=== PATIENT | male | born 1950 | race Caucasian/White ===

== ENCOUNTER 2025-02-15 15:33 | Outpatient (CLI) | payer OTHER, MEDICARE, SELFPAY ==
--- NOTE | ~2025-02-15 | XR_ITS ---
Clinical Indication: Shortness of breath PA and lateral views of the chest: Comparison: None Findings: The lungs are clear, without evidence of focal consolidation or pleural effusion. Cardiome diastinal silhouette is within normal limits. Bones and soft tissues are unremarkable. Impression: Normal chest. Reviewed, dictated and finalized at [facility]. Impression: Normal chest.
--- OUTSIDE RECORDS SUMMARY | 2025-02-15 16:26 | XMS_ITS | Referral Summary ---
Author Organization [facility] Address [address] [place] [address] Care Team Providers Care Supervisor Mending Name Role Phone Carlos Salazar MD Unavailable Jared Corea MD Primary Care Provider Encounters Date Type Department Care Team Description 02/09/2025 8:40 AM CDT Office Visit [facility] ENT [address] [facility] [address] [place] [address] Teena Etienne PA Malignant neoplasm of glottis (HCC) (Primary Dx) from Last 3 Months Allergies No known active allergies Medications levothyroxine (SYNTHROID, LEVOTHROID) 88 mcg tablet 04/07/20 18 Active omeprazole (PriLOSEC) 40 mg capsule Take 1 capsule (40 mg total) by mouth daily 30 capsule 11 02/12/20 22 Active atorvastatin (LIPITOR) 10 mg tablet Take 1 tablet (10 mg total) by mouth daily 11/29/19 23 Active lisinopriL (PRINIVIL,ZESTRIL) 10 mg tablet Take 1 tablet (10 mg total) by mouth daily 12/15/19 23 Active lisinopril-hydroCH LOROthiazide (ZESTORETIC) 20-12.5 mg per tablet Take 1 tablet by mouth daily 12/17/19 24 Active Paxlovid tablets,dose pack tablets in a dose pack PLEASE SEE ATTACHED FOR DETAILED DIRECTIONS 11/07/19 24 Active fluticasone propionate (FLONASE) 50 mcg/actuation nasal spray Administer 2 sprays into each nostril daily 01/31/20 25 Active ondansetron ODT (ZOFRAN-ODT) [address] 1 TABLET 3 TIMES A DAY BY TRANSLINGUAL ROUTE NEEDED, FOR NAUSEA. 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 Continue routine surveillance. Assessment & Plan (03/06/2020 8:23 AM CDT): No evidence of disease on examination today. Continue routine surveillance. Assessment & Plan (09/06/2019 8:18 AM MYCOLOGIST): No evidence of disease on examination today. Continue routine surveillance. Assessment & Plan (10/21/2018 8:55 AM MYCOLOGIST): No evidence of disease on examination today. Continue routine surveillance. Assessment & Plan (06/15/2018 8:49 AM CDT): No evidence of disease today. Continue surveillance. Assessment & Plan (04/13/2018 8:44 AM CDT): No evidence of lesion on exam today. Continue surveillance. Malignant neoplasm of glottis 06/04/2016 Cancer Staging:Clinical stage from 06/06/2016:Stage 0(cTis, cN0, cM0) - Signed by Carlos Salazar MD on 04/13/2018 Assessment & Plan (02/11/2022 8:03 AM CDT): No evidence of disease on examination today. Continue routine surveillance. Assessment & Plan (02/12/2021 8:12 AM CDT): No evidence of disease on examination today. Continue routine surveillance. Assessment & Plan (09/04/2020 8:45 AM MYCOLOGIST): No evidence of disease on examination today. Continue routine surveillance. Assessment & Plan (03/06/2020 8:23 AM CDT): No evidence of disease on examination today. Continue routine surveillance. Assessment & Plan (09/06/2019 8:18 AM MYCOLOGIST): No evidence of disease on examination today. Continue routine surveillance. Assessment & Plan (02/10/2019 8:32 AM CDT): No evidence of disease on examination today. Continue routine surveillance. Assessment & Plan (10/21/2018 8:55 AM MYCOLOGIST): No evidence of disease on examination today. Continue routine surveillance. Assessment & Plan (06/15/2018 8:49 AM CDT): No evidence of disease today. Continue surveillance. Assessment & Plan (04/13/2018 8:40 AM CDT): No evidence of disease on examination today. Continue surveillance. Resolved Problems Problem Noted Date Diagnosed Date Resolved Date Throat pain 04/05/2018 04/13/2018 Overview (04/13/2018): Right-sided pain that developed a week ago. Now absent. Assessment & Plan (04/13/2018 9:16 AM CDT): Mild discomfort at superior cornu of thyroid cartilage. Likely from vocal overuse. No masses/lesions. 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 Social History Tobacco Use Types Packs/Day Years Used Date Smoking Tobacco: Never Smokeless Tobacco: Never Tobacco Cessation:Counseling Given: Not Answered Alcohol Use Standard Drinks/Week Comments No 0 (1 standard drink = 0.6 oz pur e alcohol) quit 2005 Sex and Gender Information Value Date Recorded Sex Assigned at Not on file Legal Sex Male 8:14 AM MYCOLOGIST Gender Identity Not on file Sexual Orientation Not on file Last Filed Vital Signs Vital Sign Reading Time Taken Comments Blood Pressure 133/82 03/24/2017 8:36 AM CDT Pulse 62 03/24/2017 8:36 AM CDT Temperature - - Respiratory Rate - - Oxygen Saturation - - Inhaled Oxygen Concentration - - Weight 79.3 kg (174 lb 12.8 oz) 02/09/2025 8:22 AM CDT Height 170.2 cm (5' 7 ) 02/09/2025 8:22 AM CDT Body Mass Index 27.38 02/09/2025 8:22 AM CDT Plan of Treatment Not on file Insurance MEDICARE [facility] Address: [address] [address] [place] [address] Care Teams Supervisor Mending Relationship Specialty Start Date End Date Jared Corea MD PCP - General Internal Medicine 02/10/19 Carlos Salazar MD Referring Physician Otolaryngology 06/15/18
--- OUTSIDE RECORDS SUMMARY | 2025-02-15 16:26 | XMS_ITS | Clinical Summary ---
Author Organization [facility] Address [address] [facility] [place] [address] Care Team Providers Care Building Materials Sales Attendant Name Role Phone Carlos Salazar MD Unavailable [phone] Jared Corea MD Primary Care Provider Allergies No known active allergies Medications levothyroxine [...] 08/26/2016 Assessment & Plan (09/04/2020 8:45 AM CHILD DEVELOPMENT DIRECTOR): No evidence of disease on examination today. Continue routine surveillance. Assessment & Plan (03/06/2020 8:23 AM CDT): No evidence of disease on examination today. Continue routine surveillance. Assessment & Plan (09/06/2019 8:18 AM CHILD DEVELOPMENT DIRECTOR): No evidence of disease on examination today. Continue routine surveillance. Assessment & Plan (10/21/2018 8:55 AM CHILD DEVELOPMENT DIRECTOR): No evidence of disease on examination today. [...] surveillance. Assessment & Plan (09/04/2020 8:45 AM CHILD DEVELOPMENT DIRECTOR): No evidence of disease on examination today. Continue routine surveillance. Assessment & Plan (03/06/2020 8:23 AM CDT): No evidence of disease on examination today. Continue routine surveillance. Assessment & Plan (09/06/2019 8:18 AM CHILD DEVELOPMENT DIRECTOR): No evidence of disease on examination today. Continue routine surveillance. Assessment & Plan (02/10/2019 8:32 AM CDT): No evidence of disease on examination today. Continue routine surveillance. Assessment & Plan (10/21/2018 8:55 AM CHILD DEVELOPMENT DIRECTOR): No evidence of disease on examination today. [...] 8:36 AM CDT): Stable small anterior web. Encounters Date Type Department Care Team Description 02/09/2025 8:40 AM CDT Office Visit [facility] ENT [address] [facility] [address] [place] [id number] Teena Etienne PA Malignant neoplasm of glottis (HCC) (Primary Dx) from Last 3 Months Surgical History Surgery Date Site/Laterality Comments LARYNX SURGERY Medical History Medical History Date Comments Personal history of other di seases of the digestive system History of esophageal reflux - (Added by TW Conv) Family History Medical History Relation Name Comments No Known Problems Father No Known Problems Mother Relation Name Status Comments Father Mother Social History Tobacco Use Types Packs/Day Years Used Date Smoking Tobacco: Never Smokeless Tobacco: Never Tobacco Cessation:Counseling Given: Not Answered Alcohol Use Standard Drinks/Week Comments No 0 (1 standard drink = 0.6 oz pur e alcohol) quit 2005 Sex and Gender Information Value Date Recorded Sex Assigned at Not on file Legal Sex Male 8:14 AM CHILD DEVELOPMENT DIRECTOR Gender Identity Not on file Sexual Orientation Not on file Obstetrics History Last Filed Vital Signs Vital Sign Reading [...] 02/09/2025 8:22 AM CDT Plan of Treatment Health Maintenance Due Date Last Done Comments Colon Cancer Screening-Colonoscopy 1950 Depression Screening 1951 Fall Risk Assessment 1950 Hepatitis C Screening 1950 DTaP/Tdap/Td Vaccine (1 - Tdap) 1962 Hepatitis B Screening 1969 Zoster Vaccine (1 of 2) 2001 Well Visit 65+ 2016 Influenza Vaccine (Season Ended) 2025 Pneumococcal vaccine 65+ Completed 05/21/2018, 01/18 Insurance MEDICARE [facility] CHOICE PLUS Care Teams Building Materials Sales Attendant Relationship Specialty Start Date End Date Jared Corea MD PCP - General Internal Medicine 02/10/19 Carlos Salazar MD Referring Physician Otolaryngology 06/15/18
--- OUTSIDE RECORDS SUMMARY | 2025-02-15 16:26 | XMS_ITS | Continuity of Care Document ---
Author Organization [facility] Address [address] [place] [address] [address] [place] [address] Phone Care Team Providers Care Condenser Tester Name Role Phone Lisbeth Alves Unavailable Unavailable Advance Directives Directive Yes / No Effective Date File Name No Information Encounters Encounter Description Practice Location Reason(s) For Visit Diagnoses Date Provider Providers Copied on Encounter [facility], [address] [place] [address] [address], [place], [place], [id number], [place] tel:[phone] [facility] No Information [address] [facility] , [address], [place], [address], [place]. tel:[phone] Family History Family Member Type Diagnosis Age At Onset No Information Payers Payer name Insurance type Covered democrat ID Authoriza tidick(s) [employer] SOI CI [id number] Social History Type Description Quantity Date Captured Comments Sex Male Smoking Status No Information Chief Complaint And Reason For Visit No Information Reason For Referral Reason For Referral No Information History Of Present Illness Encounter Date Complaint History Of Prese nt Illness No Information Functional Status Date Functional Assessmen t No Information Instructions Date Instruction Additional Infor mation No Information Assessments Type Assessment Date No Information Patient Care Teams Name Effective Dates (start - stop) Status Members No Information
== END 2025-02-15 15:34 | disposition home or self-care (01) ==
PROVIDERS: PCP Internal Medicine
DX: R06.09 Other forms of dyspnea (principal)
CPT/HCPCS: 71046